=== PATIENT | female | born 1990 | race Caucasian/White ===

== ENCOUNTER 2018-06-09 23:10 | Inpatient (IN) | payer BC, OTHER ==
[~2018-06-09] VITALS: Ht 175.3 cm; Wt 71.4 kg
[~2018-06-09 23:10] MED LIST: ANTIBIOTIC; AUGMENTIN 875 M1 TAB PO; BCP TD; FERROUS SU325 MG/TAB PO; IBU800 M1 PO; LORTAB 5/500 501 TAB PO; NO HOME MEDICATIONS; PERCOCET 325 MG1 TA2 PO; PRENATAL1 TA7 PO; TIMOLOL 0.5% OP10 ML OP; VICODIN PO; [UNRECOGNIZED DRUG - OTHER]; prednisolone OP
[2018-06-09 23:13] VITALS: BP 125/83; PULSE 64
[2018-06-10] VITALS (20 sets, daily range): BP systolic 95–146; BP diastolic 55–80; PULSE 71–101; TEMP 97.6–98.2
[2018-06-10 02:05] LABS: BASO % 0.3 % (0.0-2.0); EOS % 0.2 % (0-4.0); GRAN # 11.1 (1.4-6.5); HEMATOCRIT 38.5 % (37.0-47.0); HEMOGLOBIN 12.9 g/dl (12.5-16.0); LYMPH % 14.2 % (20.0-51.0); MEAN CELL VOLUME 91 fl (80.0-100.0); MEAN CORPUSCULAR HEMOGLOBIN 31 pg (27.0-31.0); MEAN CORPUSCULAR HGB CONC 34 g/dl (33.0-37.0); MEAN PLATELET VOLUME 13.5 fl (7.4-10.4); MONO % 6.9 % (1.7-9.3); PLATELET COUNT 140 K/mm3 (130-400); RED BLOOD COUNT 4.23 M/mm3 (4.10-5.30); REDCELL DISTRIBUTION WIDTH-CV 13.8 % (11.5-14.5)
[2018-06-11 00:30] VITALS: BP 94/58; PULSE 63; TEMP 97.8
[2018-06-11 05:20] VITALS: BP 114/76; PULSE 83; TEMP 97.7
[2018-06-11] MEDS ORDERED: IBU600 MG PO (08:25)
[2018-06-11] MEDS ORDERED: NEWMANS TOP (08:26)
[2018-06-11 09:25] VITALS: BP 112/73; PULSE 87; TEMP 97.6
== END 2018-06-11 12:15 | disposition home or self-care (01) | DRG 768 ==
LOC: LDRO 23:10 → LDR 06-10 01:21 → OB 06-10 01:21
PROVIDERS: Obstetrics & Gynecology
PROC: 10E0XZZ Delivery of Products of Conception, External Approach (ICD-10-PCS; principal; 2018-06-10)
PROC: 0UQJXZZ Repair Clitoris, External Approach (ICD-10-PCS; 2018-06-10)
PROC: 0HQ9XZZ Repair Perineum Skin, External Approach (ICD-10-PCS; 2018-06-10)
DX: O69.81X0 Labor and delivery complicated by cord around neck, without compression, not applicable or unspecified (principal); Z37.0 Single live birth; Z3A.40 40 weeks gestation of pregnancy; O70.0 First degree perineal laceration during delivery; O71.89 Other specified obstetric trauma
CPT/HCPCS: J2590; J2795; J7120

== ENCOUNTER 2020-10-14 02:50 | Inpatient (IN) | payer BC, OTHER ==
[2020-10-14] VITALS (35 sets, daily range): BP systolic 93–122; BP diastolic 50–78; PULSE 60–99; TEMP 97.7–98.8
[~2020-10-14] VITALS: Ht 175.3 cm; Wt 73.6 kg
--- NOTE | 2020-10-14 02:10 | NUR ---
0210- PATIENT AMBULATORY TO THE UNIT WITH BY HER SIDE. PATIENT IS MORNING INDUCTION, A AT 40.[address] BURTON. COMES IN COMPLAINING OF CONTRACTIONS THAT ARE GETTING STRONGER AND MORE INTENSE. DENIES LOF OR BLEEDING. VERABLIZES GOOD MOVEMENT. 0216- EFM AND TOCO ON AND TRACING, VITALS TAKEN, ASSESSMENT COMPLETED. CALL LIGHT WITHIN REACH. DENIES FURTHER NEEDS.
[~2020-10-14 02:50] MED LIST changes: +IBU600 MG PO; +NEWMANS TOP
[2020-10-14 03:35] LABS: BASO % 0.3 % (0.0-2.0); EOS # 0.1 (0.0-0.7); EOS % 1.2 % (0-4.0); GRAN # 7.2 (1.4-6.5); GRAN % 72.1 % (42.2-75.2); HEMATOCRIT 37.2 % (37.0-47.0); LYMPH # 1.8 (1.2-3.4); LYMPH % 17.8 % (20.0-51.0); MEAN CELL VOLUME 88 fl (80.0-100.0); MEAN CORPUSCULAR HEMOGLOBIN 29 pg (27.0-31.0); MEAN CORPUSCULAR HGB CONC 32 g/dl (33.0-37.0); MEAN PLATELET VOLUME 12.4 fl (7.4-10.4); MONO # 0.8 (0.1-0.6); PLATELET COUNT 191 K/mm3 (130-400); RED BLOOD COUNT 4.21 M/mm3 (4.10-5.30); REDCELL DISTRIBUTION WIDTH-CV 14.6 % (11.5-14.5)
[2020-10-14] MEDS ORDERED: PRENATAL TABLET PO (03:52)
--- NOTE | 2020-10-14 06:15 | NUR ---
0615-Recieved report from ANAYELI Larios. Patient with INT to left hand. [place] tracing contractions irregularly every 3-7 min. Palpate firm. Patient reports increasing intensity. FHR reactive. Discussed plan of care. 0645-SVE /2, Dr. Nieves updated, see MD notification. 0650-Patient off EFM to bathroom. Returns to bedside sitting upright for placement of epidrual. 0705-Test dose administered by LEXX Bonilla. Patient tolerated procedure well. Repositioned HF.
--- NOTE | 2020-10-14 08:20 | NUR ---
0820-Dr. Diaz on unit. Reviews FHR monitor and in to see patient. 0825-AROM by , fluid scant. 0900-Dr. Diaz SVE /-2. No change. Orders to start pit. Pit started at 2mu per orders.
--- NOTE | 2020-10-14 11:10 | NUR ---
1110-SVE AL/100/0, updated MD and requested for delivery. 1130-SVE Complete +1 Station. 1132-Dr. Diaz to room. Set up for delivery. 1134-Patient beginsn pushing with contraction and MD at bed. 1135-Spontaneous delivery of head assisted by Dr. Diaz. Patient continues pushing and body immediately follows. Viable male to mothers abdomen. Cord clamped x2 andn cut by Father of . Care of infant assumed by ANAYELI Olsen. Apgars 8/9/9. 1138-Spontaneous delivery of intact placenta by MD. Fundal massage firm. Lochia WNL. EBL 200ml. Pitocin bolus per protocol and MD orders. Perineum intact. Sammie care provided and up patient repositioned and updated on plan of care and safety.
[2020-10-15 00:30] VITALS: BP 100/66; PULSE 76; TEMP 97.7
[2020-10-15 07:05] VITALS: BP 103/63; PULSE 88; TEMP 98.4
[2020-10-15] MEDS ORDERED: MOTRIN 800800 MG/TAB PO (07:31)
[2020-10-15 16:39] VITALS: BP 100/56; PULSE 78; TEMP 98.3
--- NOTE | 2020-10-15 18:00 | NUR ---
1800-Reviewed discharge instructions with patient. Denies questions. Instructed to follow up at six week . Verbalized understanding. 1810-Ambulatory off unit.
== END 2020-10-15 18:10 | disposition home or self-care (01) | DRG 807 ==
LOC: LDR 02:50 → OB 09:26
PROVIDERS: Obstetrics & Gynecology; ADMIT Student in an Organized Health Care Education/Training Program
PROC: 10E0XZZ Delivery of Products of Conception, External Approach (ICD-10-PCS; principal; 2020-10-14)
PROC: 10907ZC Drainage of Amniotic Fluid, Therapeutic from Products of Conception, Via Natural or Artificial Opening (ICD-10-PCS; 2020-10-14)
DX: O48.0 Post-term pregnancy (principal); Z37.0 Single live birth; Z3A.40 40 weeks gestation of pregnancy; O71.89 Other specified obstetric trauma; O87.4 Varicose veins of lower extremity in the puerperium
CPT/HCPCS: J2590; J7120

== ENCOUNTER 2021-09-25 08:00 | Emergency (ER) | payer BC ==
[~2021-09-25] VITALS: Ht 172.7 cm; Wt 59.1 kg
[~2021-09-25 08:00] MED LIST changes: +MOTRIN 800800 MG/TAB PO; +PRENATAL TABLET PO
[2021-09-25 08:37] LABS: BASO % 0.3 % (0.0-2.0); EOS % 0.2 % (0.0-4.0); GRAN # 12.2 K/mm3 (1.4-6.5); GRAN % 86.4 % (42.2-75.2); HEMOGLOBIN 12.3 g/dl (12.5-16.0); LYMPH # 1.1 K/mm3 (1.2-3.4); LYMPH % 7.7 % (20.0-51.0); MEAN CELL VOLUME 86 fl (80.0-100.0); MEAN CORPUSCULAR HEMOGLOBIN 29 pg (27-31); MEAN CORPUSCULAR HGB CONC 34 g/dl (33.0-37.0); MEAN PLATELET VOLUME 12.2 fl (7.4-10.4); MONO # 0.7 K/mm3 (0.1-0.6); PLATELET COUNT 195 K/mm3 (130-400); RED BLOOD COUNT 4.24 M/mm3 (4.10-5.30); REDCELL DISTRIBUTION WIDTH-CV 13.8 % (11.5-14.5)
[2021-09-25 08:38] LABS: HEMATOCRIT 36.5 % (37.0-47.0)
[2021-09-25 08:56] LABS: ALBUMIN 3.7 gm/dL (3.5-5.0); BILIRUBIN,TOTAL 0.5 mg/dL (0.2-1.2); CALCIUM 8.5 mg/dL (8.4-10.2); CREATININE, serum 0.69 mg/dL (0.57-1.11); POTASSIUM 3.8 mmol/L (3.5-4.5)
[2021-09-25] MEDS ORDERED: ZOFRAN ODT4 MG PO (10:40)
[2021-09-25] MEDS ORDERED: NORCO 325 MG-51 TAB PO (10:40)
[2021-09-25 11:10] VITALS: BP 101/64; PULSE 79; TEMP 97.7
== END 2021-09-25 11:10 | disposition home or self-care (01) ==
LOC: COL.ER 08:00
PROVIDERS: Personal Emergency Response Attendant
DX: R10.31 Right lower quadrant pain (principal); Z32.02 Encounter for pregnancy test, result negative
CPT/HCPCS: J7030; Q9967

== ENCOUNTER 2023-11-05 23:48 | Outpatient (CLI) | payer BC ==
[~2023-11-05] VITALS: Ht 172.7 cm; Wt 72.7 kg
[~2023-11-05 23:48] MED LIST changes: +NORCO 325 MG-51 TAB PO; +ZOFRAN ODT4 MG PO
--- NOTE | 2023-11-06 | NUR ---
G4L3 at 37 weeks and 3 days arrives to unit with complaint of nausea and vomiting. Pt reports vomiting multiple times over the last few hours and has not been able to keep anything down. Pt is also experiencing constant abdominal pain as well as contractions every 5-10 minutes. Denies loss of fluid or vaginal bleeding. Pt oriented to room, call light within reach, bed in low and locked position. Clean gown on. US and toco explained and applied. Vitals obtained. Admission assessment started.
[2023-11-06] MEDS ORDERED: LR 1,000 ML IV PRN (00:15)
--- NOTE | 2023-11-06 00:25 | NUR ---
18G IV started in left forearm with 1 attempt. Lactated ringers bolus infusing to gravity.
[2023-11-06 00:30] VITALS: BP 120/56; PULSE 77; TEMP 97.9
[2023-11-06 01:00] VITALS: BP 94/56; PULSE 72
--- NOTE | 2023-11-06 01:25 | NUR ---
Pt reports feeling better after fluids but would still like zofran. States she feels contractions every 5-10 minutes but they are not painful.
[2023-11-06] MEDS ORDERED: Ondansetron 4 MG/2 ML VIAL IV ONE (01:30)
[2023-11-06 01:40] VITALS: BP 90/52; PULSE 77
--- NOTE | 2023-11-06 02:00 | NUR ---
SVE 07/25/-3, unchanged from office exam. Pt reports feeling better after fluids and zofran and is comfortable with plan to discharge home. Discharge instructions reviewed with patient, verbalized understanding. Pt seen ambulating off unit with spouse.
== END 2023-11-06 02:00 | disposition home or self-care (01) ==
LOC: LDRO 23:48 → LDR 11-06 → LDRO 11-06 02:00
DX: O21.9 Vomiting of pregnancy, unspecified (principal); O99.891 Other specified diseases and conditions complicating pregnancy; R10.9 Unspecified abdominal pain; Z3A.37 37 weeks gestation of pregnancy
CPT/HCPCS: OP; J2405; J7120